=== PATIENT | female | born 1995 | race African-American/Black ===

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

== ENCOUNTER 2017-04-08 14:07 | Emergency (ER) | payer MEDICAID ==
[2017-04-08] MEDS ORDERED: IBUPROFEN 600 MG TABLET PO ONE (15:26)
[2017-04-08] MEDS ORDERED: ONDANSETRON 4 MG TAB.RAPDIS PO ONE (15:26)
[2017-04-08] MEDS ORDERED: ACETAMINOPHEN 325 MG TABLET PO ONE (15:26)
--- NOTE | 2017-04-08 15:31 | ER Document Report ---
ED Flu Like - General Chief Complaint: Sore Throat Stated Complaint: HEADACHE,SORE THROAT,COUGH Time Seen by Provider: 04/08/17 15:21 Mode of Arrival: Ambulatory Information source: Patient TRAVEL OUTSIDE OF THE [place] IN LAST 30 DAYS: No - HPI Onset: Yesterday Timing/Duration: Sudden Quality of pain: Achy Severity: Moderate Notes: Patient arrives with complaints of flulike symptoms that started yesterday. She states that she has had a fever, chills, body aches, sore throat, cough, intermittent headache, nausea and has vomited 2 times since this afternoon. She denies any abdominal pain. She denies any dysuria or hematuria. She denies any blurred or loss vision. She denies any unilateral numbness tingling or weakness. She complains of pain in her chest when she coughs occasionally, but denies any chest pain otherwise. She denies any shortness of breath. She denies any rashes. She denies neck stiffness. She denies any chronic medical conditions, immunosuppression, HIV, diabetes, asthma, being . She did not get a flu shot this year. She has not taken any medications today. She denies any other complaints at this time. - Related Data Allergies/Adverse Reactions: No Known Allergies Allergy (Verified 04/08/17 14:10) Past Medical History - Social History Smoking Status: Unknown if Ever Smoked Chew tobacco use (# tins/day): No Frequency of alcohol use: None Drug Abuse: None Family History: CAD, Hyperlipidemia, Hypertension Patient has suicidal ideation: No Patient has homicidal ideation: No Renal/ Medical History: Denies: Hx Peritoneal Dialysis - Immunizations Immunizations up to date: Yes Hx Diphtheria, Pertussis, Tetanus Vaccination: Yes Review of Systems - Review of Systems -: Yes All other systems reviewed and negative Physical Exam - Vital signs Vitals: Temp Pulse Resp BP Pulse Ox 101.1 F H 127 H 20 122/72 97 04/08/17 14:13 04/08/17 14:13 04/08/17 14:13 04/08/17 14:13 04/08/17 14:13 - Notes Notes: GENERAL: alert, cooperative, nontoxic, no distress. HEAD: normocephalic, atraumatic EYES: conjunctiva pink without discharge, no external redness or swelling. Pupils equal round react to light bilaterally. Extra muscles are intact bilaterally. EARS: no external swelling, no external redness, no mastoid redness, swelling, tenderness. Ear canals are clear without swelling or drainage. TMs pearly smith , no redness, no bulging, normal landmarks, no perforation. NOSE: atraumatic, no external swelling. clear rhinorrhea noted. MOUTH/THROAT: mucous membranes moist and pink, posterior pharynx without erythema, swelling, exudate. No trismus or drooling. NECK: soft, supple, full range of motion, no meningismus. CHEST: no distress, lungs clear and equal throughout. No wheezing, rales, rhonchi. CARDIAC: regular rhythm, tachycardia , no murmur, normal capillary refill, normal pulses. No peripheral edema noted. ABDOMEN: Soft, nontender, no mass. No rebound tenderness or guarding. BACK: full range of motion, no CVA tenderness. EXTREMITIES: full range of motion of all extremities. No redness, no swelling. NEURO: alert and oriented -3, no focal deficits, full range of motion of all extremities. PYSCH: appropriate mood, affect. Patient is cooperative. SKIN: pink, warm, dry, no rash. Course - Re-evaluation Re-evalutation: 04/08/17 18:12 Patient is nontoxic appearing with stable vitals. The patient arrives with 24 hours of flulike symptoms. She is in no distress. She does not appear to be septic. She is a healthy young lady with no known medical problems. Her heart rate has improved with antipyretics and oral fluids. She has had no vomiting in the emergency department. Chest x-ray shows no pneumonia, urinalysis shows no UTI, influenza screen and strep were negative. Based on the high incidence of influenza that we are currently seen and the poor sensitivity of the influenza test, I will treat the patient with Tamiflu since she is being seen within the first 48 hours of her illness. She will also be given a prescription for Hycodan to help with cough and pain. She will be instructed to take Tylenol and Motrin as needed for pain or fever. Patient is instructed to follow-up if she does not feel like she is improved within the next 5 days, sooner if she gets worse in any way, significant difficulty breathing, persistent vomiting, abdominal pain, or for any further concerns. The patient's emergency department workup and current diagnosis were explained to the patient and or family. Follow-up instructions were provided. Medications if prescribed were discussed. Instructions for when to return to the emergency department including specific worrisome symptoms were discussed with the patient and/or family. The patient is noted to have elevated blood pressure during today's emergency department visit. The patient was informed of this finding. The patient was instructed that this may be related to pre-hypertension and requires further evaluation with a primary care provider. The patient has no hypertensive symptoms at this time. - Vital Signs Vital signs: Temp Pulse Resp BP Pulse Ox 99.8 F 105 H 16 109/65 97 04/08/17 17:57 04/08/17 17:57 04/08/17 17:57 04/08/17 17:57 04/08/17 17:57 - Laboratory Laboratory results interpreted by me: 04/08/17 17:00 Urine Urobilinogen 2.0 H Ur Leukocyte Esterase TRACE H Urine Ascorbic Acid 40 H - Diagnostic Test Radiology reviewed: Image reviewed, Reports reviewed - Negative chest x-ray Discharge - Discharge Clinical Impression: Influenza Condition: Stable Disposition: HOME, SELF-CARE Instructions: Influenza ([facility]) [id number] Additional Instructions: Take medications as prescribed. Drink lots of fluids. Follow-up if you are not improved in the next 5 days, sooner for worsening symptoms, persistent vomiting, abdominal pain, difficulty breathing, or any further concerns. The medication you were prescribed today may cause drowsiness. Do not drive or operate heavy machinery while taking this medication. Prescriptions: Hydrocodone Bit/Homatropine [Hycodan Syrup 5-1.5 mg/5 ml Ud Cup] 5 ml PO Q4HP PRN #120 ml PRN Reason: Oseltamivir Phosphate [Tamiflu 75 mg Capsule] 75 mg PO BID #10 capsule Forms: Elevated Blood Pressure, Smoking Cessation Education, Return to Work Referrals: [facility] [Provider Group] - Follow up as needed
--- NOTE | 2017-04-08 16:04 | RADIOLOGY REPORT (SQ) ---
EXAM DESCRIPTION: CHEST PA/LAT COMPLETED DATE/TIME: 04/08/2017 3:45 pm REASON FOR STUDY: cough, fever COMPARISON: Two-view chest 07/07/2016, 03/05/2015 EXAM PARAMETERS: NUMBER OF VIEWS: two views TECHNIQUE: Digital Frontal and Lateral radiographic views of the chest acquired. RADIATION DOSE: NA LIMITATIONS: none FINDINGS: LUNGS AND PLEURA: No opacities, masses or pneumothorax. No pleural effusion. MEDIASTINUM AND HILAR STRUCTURES: No masses or contour abnormalities. HEART AND VASCULAR STRUCTURES: Heart normal size. No evidence for failure. BONES: No acute findings. HARDWARE: None in the chest. OTHER: No other significant finding. IMPRESSION: NO SIGNIFICANT RADIOGRAPHIC FINDING IN THE CHEST. TECHNICAL DOCUMENTATION: JOB ID: [id number] [email or web address]- All Rights Reserved
[2017-04-08 17:21] LABS: A TYPE INFLUENZA AG NEGATIVE (NEGATIVE); B INFLUENZA AG NEGATIVE (NEGATIVE)
[2017-04-08 17:24] LABS: APPEARANCE,URINE SLIGHTLY-CLOUDY; BILIRUBIN,URINE NEGATIVE (NEGATIVE); COLOR,URINE YELLOW; GLUCOSE, URINE NEGATIVE (NEGATIVE); KETONES,URINE NEGATIVE (NEGATIVE); LEUKOCYTE ESTERASE,URINE TRACE (NEGATIVE); NITRITE,URINE NEGATIVE (NEGATIVE); PROTEIN,URINE NEGATIVE (NEGATIVE); URINE SPECIFIC GRAVITY 1.025
[2017-04-08 18:02] VITALS: BP 109/65
== END 2017-04-08 18:24 | disposition home or self-care (01) ==
LOC: ER 14:07
DX: J11.1 Influenza due to unidentified influenza virus with other respiratory manifestations (principal); R50.9 Fever, unspecified; R05 Cough; R51 Headache; R11.2 Nausea with vomiting, unspecified; R07.89 Other chest pain; R03.0 Elevated blood-pressure reading, without diagnosis of hypertension
CPT/HCPCS: 99283; 87070; 87880; 81025; 81001; 87804; 71046; S0119